=== PATIENT | female | born 1940 | race Caucasian/White ===

== ENCOUNTER → 2017-02-25 | Outpatient (CLI) | payer OTHER | END | disposition home or self-care (01) | LOC: C.CPL 15:05 | PROVIDERS: ATTEND Orthopaedic Surgery | DX: S83.242A Other tear of medial meniscus, current injury, left knee, initial encounter (principal); X58.XXXA Exposure to other specified factors, initial encounter; I25.2 Old myocardial infarction; R94.31 Abnormal electrocardiogram [ECG] [EKG] ==

== ENCOUNTER 2022-04-13 16:21 | Inpatient (IN) ==
[2022-04-13 17:06] LABS: Basophils # (auto) 0.06 K/uL (0-0.2); Basophils % (auto) 0.7 %; Eosinophils # (auto) 0.59 K/uL (0-0.50); Eosinophils % (auto) 6.4 %; Hematocrit (blood only) 36.4 % (34.1-44.9); Hemoglobin 12.1 g/dl (12.0-16.0); Immature Granulocytes # (auto) 0.05 K/uL (0.00-0.02); Immature Granulocytes % (auto) 0.5 %; Lymphocytes # (auto) 1.56 K/uL (1.2-3.4); Lymphocytes % (auto) 16.9 %; Mean Corpuscular Hemoglobin 31.9 pg (25.0-34.0); Mean Corpuscular Hgb Conc 33.2 g/dL (32.0-36.0); Mean Platelet Volume 8.9 fL (9.4-12.3); Monocytes # (auto) 0.66 K/uL (0.24-0.82); Monocytes % (auto) 7.2 %; Neutrophils # (auto) 6.31 K/uL (1.4-6.5); Neutrophils % (auto) 68.3 %; Platelet Count 353 K/uL (130-400); RDW Coefficient of Variation 12.4 % (11.5-14.5); RDW Standard Deviation 43.1 fL (36.4-46.3); Red Blood Count 3.79 M/uL (3.93-5.22); White Blood Count 9.23 K/ul (4.8-10.8)
[2022-04-13 17:20] LABS: Partial Thromboplastin Time 27.5 Seconds (21.0-31.0)
[2022-04-13 17:33] LABS: Alanine Aminotransferase 9 U/L (7-52); Albumin Globulin Ratio 0.7 (0.9-2); Albumin Level 3.7 gm/dl (3.4-5.0); Alkaline Phosphatase 82 U/L (34-104); Anion Gap 5 (3-11); Aspartate Aminotransferase 17 U/L (13-39); BUN Creatinine Ratio 52.6 (10-20); Bilirubin,Total 0.3 mg/dl (0.2-1.0); Blood Urea Nitrogen 30 mg/dl (6-23); Calcium 9.6 mg/dl (8.5-10.1); Carbon Dioxide 32 mmol/L (21-32); Chloride 95 mmol/L (98-107); Est GFR (African American) 100.8 ml/min; Est GFR (Non-African American) 86.9 ml/min; Glucose 138 mg/dl (70-99(Fasting)); Magnesium 2.1 mg/dl (1.7-2.4); Potassium 4.3 mmol/L (3.5-5.1); Sodium 132 mmol/L (136-145); Total Protein 8.7 gm/dl (6.0-8.3)
--- NOTE | 2022-04-13 19:21 | XRay Report ---
XR chest 1V portable CLINICAL HISTORY: Shortness of breath. COMPARISON STUDY: No previous studies for comparison. FINDINGS: Incidental note is made of a peripherally calcified 2.9 cm focus within the left upper quad rant. This may be within the spleen. Patient is rotated. There is no pneumothorax or pleural effusion . Cardiac size is normal. Asymmetric right hilar prominence is likely technical. A 2.3 cm right supra hilar density may also be artifactual related to the right first costosternal junction. There are julio pected patchy opacities, greater within the right lung. IMPRESSION: 1. Interstitial thickening with possible patchy bilateral airspace opacities, greater within the righ t lung. The findings may reflect pneumonia or less likely pulmonary edema. Radiographic follow-up is recommended. 2. 2.3 cm right suprahilar density. This may be artifactual however should be assessed on follow-up r adiograph to exclude a pulmonary nodule. ACT 112: Negative or not required by law. Electronically signed by: Delgado Alvarado M.D. 04/13/2022 7:19 PM
[2022-04-13 19:31] LABS: Influenza A virus by PCR Negative (Neg); Influenza B virus by PCR Negative (Neg); RSV by PCR Negative (Neg); SARS CoV2 RNA(COVID-19) Ceph NEGATIVE (Negative)
[2022-04-13] MEDS ORDERED: OPTIRAY 320 500ml IV ONE (22:40)
--- NOTE | 2022-04-13 22:57 | Emergency Department Note ---
Impression & Plan Respiratory failure, ILD (interstitial lung disease), Breathlessness ED Provider Note Provider: Lenny Shah MD DATE OF SERVICE: 04/13/2022 CHIEF COMPLAINT: Referred by , Shortness of breath HISTORY OF PRESENT ILLNESS: Patient is a 81-year-old female extensive past medical history including restrictive lung disease due to interstitial lung disease, chronic bronchiectasis, chronic respiratory failure on 2 L of oxygen, heart failure, type 1 diabetes and distant history of PE not currently on anticoagulation presenting here today referred from the pulmonary office. Has had several hospitalizations in the [facility] over the past year for breathing issues and has been on steroids and admitted with pneumonia. Has had elevated CO2 issues according to daughter who is present and provides additional history. Patient evidently over the past month has had worsening of her breathing. She is also had some nausea and a wet cough. Denies bloody cough. Seen in the pulmonary office and referred here today for further evaluation. PAST MEDICAL HISTORY: As noted above MEDICATIONS: Reviewed home medications SOCIAL HISTORY: Lives at home with , does not smoke, history of secondhand smoke exposure PHYSICAL EXAM: GENERAL: alert and oriented in no acute distress in wheelchair on nasal cannula oxygen Head: normocephalic and atraumatic EYES: No injection, discharge or icterus. NECK: Trachea midline. Supple. ENT: Mucous membranes pink and moist. LUNGS: Airway patent. No retractions. Breath sounds with some faint diffuse crackles HEART: Regular rate and rhythm. No chest wall tenderness ABDOMEN: Soft and non-tender, without guarding or rebound. SKIN: Acyanotic, warm, dry, without rashes EXTREMITIES: Without swelling, tenderness or deformity NEUROLOGICAL: No focal deficits. No aphasia. No facial droop or slurred speech. Ambulatory. EK bpm normal sinus rhythm. No PVC or PAC. No acute ST segment elevation with a QTC of 436 and a left axis. CONTINUOUS CARDIAC MONITORING: was ordered and showed a heart rate of 90s-100s bpm in normal sinus rhythm to sinus tachycardia Patient's laboratory studies and imaging reviewed. Differential includes Reactive airway disease, pneumonia, pneumothorax, COPD, CHF, infections, cardiac ischemia, pulmonary embolism, musculoskeletal, gastrointestinal, as well as other pathologies. IMPRESSION/MEDICAL DECISION MAKING: Patient with some worsening breathing over the past month or so. Referred from pulmonary office today. Increasing oxygen from 2 L up to 4. She has been more short of breath particularly ambulation. Bit of a cough. Significant pulmonary history and multiple hospitalizations before and [facility] outpatient records reviewed. Chest x-ray questions right hilar density as well as interstitial thickening and patchy bilateral airspace opacities possibly representing pneumonia. Does not appear fluid overloaded without swelling in the legs. Given history of VTE P CT PE was completed to exclude PE. No significant leukocytosis and no anemia today. Mild hyponatremia 132 but no severe hypokalemia or significant renal dysfunction. No troponin elevation and I doubt a cardiac etiology to her symptoms at this point. Negative COVID flu and RSV which is reassuring. CT scan report as below reviewed again to exclude PE and evaluate further for pneumonia process. Did order VBG although she does not appear acutely confused at this point. Patient to the bathroom on [address] ill gets winded even transferring to the toilet. CT scan as below questions a pneumonitis. Will cover with ceftriaxone at this point however given her chronic disease history as well as give a dose of steroids. Discussed with further care here at the hospital. Hospitalist contacted. Family updated at bedside. VBG without acidosis and a CO2 of 59. DIAGNOSIS: Acute on chronic respiratory failure, shortness of breath, interstitial lung disease DISPOSITION: Hospitalist will evaluate Patient was agreeable with this plan. Preliminary Findings Only See Final Report For Complete Findings CTA CHEST: Negative for DVT Extensive groundglass infiltrates may reflect microatelectasis versus nonspecific pneumonitis. Atypical pneumonia/viral pneumonia not excluded in the correct clinical setting Radiologist: Raheel Miller MD Study ready at 22:52 and initial results transmitted at 22:57 Past Med/Surg History Social History Smoking Status: Never smoker Preferred Language: Amharic Feels Safe at Home: Yes Allergies Allergies Allergy/AdvReac Type Severity Reaction Status Date / Time No Known Allergies Allergy Unverified 04/14/22 00:11 Results & Data (ED) Vital Signs Vital Signs - 24 hr 04/13/22 16:24 04/13/22 16:24 04/13/22 16:24 Temperature 36.3 C L Temperature Source Temporal Artery Scan Pulse Rate 98 H Pulse Rate [Apical] Respiratory Rate 20 Respiratory Effort / Characteristics Non-Labored Spontaneous Non-Labored Spontaneous Respiratory Depth Normal Respiratory Pattern Regular Blood Pressure 133/74 Blood Pressure [Right Arm] Blood Pressure Mean 93 Blood Pressure Mean [Right Arm] Blood Pressure Position Sitting Blood Pressure Position [Right Arm] Pulse Oximetry 87 L 87 L Oxygen Delivery Method Nasal Cannula Nasal Cannula Oxygen Flow Rate 3 3 Sepsis Recent Fever Within 48 Hours No Sepsis New/Unexplained Change in Mental Status N/A Sepsis Action Taken by Nursing No Action Required 04/13/22 16:34 04/13/22 16:55 04/13/22 16:55 Temperature Temperature Source Pulse Rate Pulse Rate [Apical] Respiratory Rate Respiratory Effort / Characteristics Respiratory Depth Respiratory Pattern Blood Pressure Blood Pressure [Right Arm] Blood Pressure Mean Blood Pressure Mean [Right Arm] Blood Pressure Position Blood Pressure Position [Right Arm] Pulse Oximetry 91 97 97 Oxygen Delivery Method Nasal Cannula Nasal Cannula Oxygen Flow Rate 4 4 Sepsis Recent Fever Within 48 Hours Sepsis New/Unexplained Change in Mental Status Sepsis Action Taken by Nursing 04/13/22 23:35 Temperature Temperature Source Pulse Rate Pulse Rate [Apical] 90 Respiratory Rate 18 Respiratory Effort / Characteristics Non-Labored Spontaneous Respiratory Depth Normal Respiratory Pattern Blood Pressure Blood Pressure [Right Arm] 178/83 H Blood Pressure Mean Blood Pressure Mean [Right Arm] 114 Blood Pressure Position Blood Pressure Position [Right Arm] Sitting Pulse Oximetry 94 Oxygen Delivery Method Nasal Cannula Oxygen Flow Rate 4 Sepsis Recent Fever Within 48 Hours Sepsis New/Unexplained Change in Mental Status Sepsis Action Taken by Nursing Laboratory Data 04/13/22 16:57 04/13/22 16:57 Lab Results 04/13/22 04/13/22 04/13/22 Range/Units 16:57 16:57 16:57 WBC 9.23 (4.8-10.8) K/ul RBC 3.79 L (3.93-5.22) M/uL Hgb 12.1 (12.0-16.0) g/dl Hct 36.4 (34.1-44.9) % MCV 96.0 (80.0-100.0) fL MCH 31.9 (25.0-34.0) pg MCHC 33.2 (32.0-36.0) g/dL RDW Std Deviation 43.1 (36.4-46.3) fL RDW Coeff of Kylee 12.4 (11.5-14.5) % Plt Count 353 (130-400) K/uL MPV 8.9 L (9.4-12.3) fL Immature Gran % (Auto) 0.5 % Neut % (Auto) 68.3 % Lymph % (Auto) 16.9 % Page % (Auto) 7.2 % Eos % (Auto) 6.4 % Baso % (Auto) 0.7 % Neut # (Auto) 6.31 (1.4-6.5) K/uL Lymph # (Auto) 1.56 (1.2-3.4) K/uL Page # (Auto) 0.66 (0.24-0.82) K/uL Eos # (Auto) 0.59 H (0-0.50) K/uL Baso # (Auto) 0.06 (0-0.2) K/uL Immature Gran # (Auto) 0.05 H (0.00-0.02) K/uL PT 11.0 (9.0-12.0) Seconds INR 1.0 (0.9-1.1) APTT 27.5 (21.0-31.0) Seconds PTT Ratio 1.0 VBG pH (7.36-7.41) VBG pCO2 (38-50) mmHg VBG pO2 mmHg VBG HCO3 mmol/L VBG O2 Saturation % VBG Base Excess mEq/L Sodium 132 L (136-145) mmol/L Potassium 4.3 (3.5-5.1) mmol/L Chloride 95 L (98-107) mmol/L Carbon Dioxide 32 (21-32) mmol/L Anion Gap 5 (3-11) BUN 30 H (6-23) mg/dl Creatinine 0.57 L (0.6-1.2) mg/dl Est Cr Clr Drug Dosing Not Reportable Est GFR ( Amer) 100.8 ml/min Est GFR (Non-Af Amer) 86.9 ml/min BUN/Creatinine Ratio 52.6 H (10-20) Glucose 138 H (70-99(Fasting)) mg/dl Calcium 9.6 (8.5-10.1) mg/dl Magnesium 2.1 (1.7-2.4) mg/dl Total Bilirubin 0.3 (0.2-1.0) mg/dl AST 17 (13-39) U/L ALT 9 (7-52) U/L Alkaline Phosphatase 82 (34-104) U/L Troponin I High Sens (0-14) pg/ml Total Protein 8.7 H (6.0-8.3) gm/dl Albumin 3.7 (3.4-5.0) gm/dl Globulin 5.0 H (2.5-4.0) gm/dl Albumin/Globulin Ratio 0.7 L (0.9-2) SARS-CoV-2 (PCR) (Negative) Influenza Type A (PCR) (Neg) Influenza Type B (PCR) (Neg) RSV (RT-PCR) (Neg) 04/13/22 04/13/22 04/13/22 Range/Units 16:57 18:27 23:29 WBC (4.8-10.8) K/ul RBC (3.93-5.22) M/uL Hgb (12.0-16.0) g/dl Hct (34.1-44.9) % MCV (80.0-100.0) fL MCH (25.0-34.0) pg MCHC (32.0-36.0) g/dL RDW Std Deviation (36.4-46.3) fL RDW Coeff of Kylee (11.5-14.5) % Plt Count (130-400) K/uL MPV (9.4-12.3) fL Immature Gran % (Auto) % Neut % (Auto) % Lymph % (Auto) % Page % (Auto) % Eos % (Auto) % Baso % (Auto) % Neut # (Auto) (1.4-6.5) K/uL Lymph # (Auto) (1.2-3.4) K/uL Page # (Auto) (0.24-0.82) K/uL Eos # (Auto) (0-0.50) K/uL Baso # (Auto) (0-0.2) K/uL Immature Gran # (Auto) (0.00-0.02) K/uL PT (9.0-12.0) Seconds INR (0.9-1.1) APTT (21.0-31.0) Seconds PTT Ratio VBG pH 7.38 (7.36-7.41) VBG pCO2 59 H (38-50) mmHg VBG pO2 26 mmHg VBG HCO3 35 mmol/L VBG O2 Saturation < 60.0 % VBG Base Excess 7.7 mEq/L Sodium (136-145) mmol/L Potassium (3.5-5.1) mmol/L Chloride (98-107) mmol/L Carbon Dioxide (21-32) mmol/L Anion Gap (3-11) BUN (6-23) mg/dl Creatinine (0.6-1.2) mg/dl Est Cr Clr Drug Dosing Est GFR ( Amer) ml/min Est GFR (Non-Af Amer) ml/min BUN/Creatinine Ratio (10-20) Glucose (70-99(Fasting)) mg/dl Calcium (8.5-10.1) mg/dl Magnesium (1.7-2.4) mg/dl Total Bilirubin (0.2-1.0) mg/dl AST (13-39) U/L ALT (7-52) U/L Alkaline Phosphatase (34-104) U/L Troponin I High Sens 4.9 (0-14) pg/ml Total Protein (6.0-8.3) gm/dl Albumin (3.4-5.0) gm/dl Globulin (2.5-4.0) gm/dl Albumin/Globulin Ratio (0.9-2) SARS-CoV-2 (PCR) NEGATIVE (Negative) Influenza Type A (PCR) Negative (Neg) Influenza Type B (PCR) Negative (Neg) RSV (RT-PCR) Negative (Neg) Administered Medications Discontinued Medications Ioversol (Optiray 320 500ml) 109 ml IV ONCE ONE Stop: 04/13/22 22:41 Last Admin: 04/13/22 22:41 Dose: 109 ml Documented By: [facility] Imaging Data Radiologist's Impression: Chest X-Ray 04/13/22 16:36 XR chest 1V portable CLINICAL HISTORY: Shortness of breath. COMPARISON STUDY: No previous studies for comparison. FINDINGS: Incidental note is made of a peripherally calcified 2.9 cm focus within the left upper quadrant. This may be within the spleen. Patient is rotated. There is no pneumothorax or pleural effusion. Cardiac size is normal. Asymmetric right hilar prominence is likely technical. A 2.3 cm right suprahilar density may also be artifactual related to the right first costosternal junction. There are suspected patchy opacities, greater within the right lung. IMPRESSION: 1. Interstitial thickening with possible patchy bilateral airspace opacities, greater within the right lung. The findings may reflect pneumonia or less likely pulmonary edema. Radiographic follow-up is recommended. 2. 2.3 cm right suprahilar density. This may be artifactual however should be assessed on follow-up radiograph to exclude a pulmonary nodule. ACT 112: Negative or not required by law. Electronically signed by: Delgado Alvarado M.D. 04/13/2022 7:19 PM Discharge Plan Visit Data Chief Complaint: Shortness of Breath/Dyspnea Stated Complaint: SOB, REF BY DOC ED Provider: Lenny Shah Discharge Problem: Respiratory failure, ILD (interstitial lung disease), Breathlessness Patient Disposition: Being Evaluated by Hospitalist Forms Stand Alone Forms: [facility] Referrals Referrals: Anders Cowan MD [Primary Care Provider] - : Respiratory failure Qualifiers: Chronicity: acute on chronic Respiratory failure complication: hypoxia Qualified Code(s): J96.21 - Acute and chronic respiratory failure with hypoxia
[2022-04-13] MEDS ORDERED: cefTRIAXone SODIUM 1,000 MG in DEXTROSE 5% AD-VAN 50 ML IV STA (23:20)
[2022-04-13 23:39] LABS: Base Excess VBG 7.7 mEq/L; HCO3 VBG 35 mmol/L; Oxygen Saturation VBG < 60.0 %; PCO2 VBG 59 mmHg (38-50); PO2 VBG 26 mmHg; pH VBG 7.38 (7.36-7.41)
[2022-04-14] MEDS ORDERED: ALBUTEROL HFA 8 GM INHALER INH PRN (00:13)
[2022-04-14] MEDS ORDERED: GLUCOSE 10 TAB/TUBE PO PRN (00:16)
[2022-04-14] MEDS ORDERED: GLUCOSE 40% GEL 15 GM TUBE PO PRN (00:16)
[2022-04-14] MEDS ORDERED: DEXTROSE 50% 50 ML SYRINGE IV PRN (00:16)
[2022-04-14] MEDS ORDERED: CARBOHYDRATES FOR HYPOGLYCEMIA PO PRN (00:16)
[2022-04-14] MEDS ORDERED: GLUCAGON FOR INJ 1 MG VIAL SQ PRN (00:16)
[2022-04-14] MEDS ORDERED: ACETAMINOPHEN 325 MG TAB PO PRN (00:18)
[2022-04-14] MEDS ORDERED: MAGNESIUM HYDROXIDE SUSP 30 ML UDC PO PRN (00:18)
[2022-04-14] MEDS ORDERED: ONDANSETRON INJ 2 MG/ML 2 ML VIAL IV PRN (00:18)
[2022-04-14] MEDS ORDERED: ALUMINUM/MAGNESIUM SUSP 30 ML UDC PO PRN (00:18)
[2022-04-14] MEDS ORDERED: POLYETHYLENE (MIRALAX) 17 GM PACK PO PRN (00:18)
[2022-04-14] MEDS ORDERED: LANTUS PER UNIT CHARGE SQ SCH ×2 (00:30→09:30)
[2022-04-14] MEDS: MONTELUKAST SODIUM 10 MG TABLET PO SCH ×2 (01:37→22:17)
[2022-04-14] MEDS: IPRATROPIUM BROMIDE NEB SOLN 0.02% 2.5 ML VIAL NEB SCH ×4 (01:37→17:33)
[2022-04-14 02:50] LABS: BUN Creatinine Ratio 49.1 (10-20); Creatinine Clr Calc Pharmacy 60.3 ml/min; Potassium 4.5 mmol/L (3.5-5.1)
--- NOTE | 2022-04-14 03:10 | History & Physical Report ---
Date of Service April 14, 2022 Assessment & Plan (1) ILD (interstitial lung disease): Plan Possible pneumonia Possible interstitial lung disease exacerbation Patient comes in with trouble breathing for 1 month, worsening since last 1 week Patient has a history of interstitial lung disease on 2 L oxygen at home, patient with increasing oxygen requirement and increasing shortness of breath with minimal exertion at home. Patient was evaluated by her call center specialist on the day of arrival and referred her to the hospital for admission/evaluation Admitting WBC WNL, CXR with patchy bilateral airspace opacities suggestive of pneumonia. Admitting CTA chest: Negative for PE. Extensive groundglass infiltrate, suggestive of nonspecific pneumonitis versus atypical pneumonia. Follow final imaging results. Patient is started on Rocephin in the ED, will continue same. Add doxycycline. Also will use Solu-Medrol for possible ILD exacerbation. Pulmonology consult in AM. Get BNP, if elevated ECHO/cardio consult. Failure to thrive Patient with low BMI, cachectic appearing, has poor appetite chronically which has further decreased in the last 2 to 3 weeks. Dietitian consult, liberalize diet. Other chronic medical conditions: As mentioned in HPI, resume home meds as able. SSI insulin for T1DM. Heparin subcu Full code PT/OT when able. Admission and Anticipated Discharge Date Admission Date: April 14, 2022 History of Present Illness Chief Complaint: trouble breathing Primary Care Provider: Anders Cowan MD 81-year-old lady with PMH of multifactorial shortness of breath, chronic bronchiectasis, restrictive lung disease due to both interstitial lung disease and extrathoracic weakness, moderate persistent asthma, chronic hypoxic respiratory failure on 2 L, chronic diastolic congestive failure, AP window adenopathy, chronic rhinitis and atrial fibrillation not on anticoagulation, T1DM, HLD, hypothyroidism, moderate persistent asthma, recurrent UTI presented to the ED 1/ with complaint of trouble breathing. Patient complains of difficulty breathing since last 1 month, worsening in the last 1 week. Patient feels short of breath with minimal exertion and is extremely tired and is requiring multiple naps a day, easily fatigable and is very weak and lethargic. Patient reports cough at baseline with clear scant mucus. Patient denies fever/sore throat/chest pain/palpitation/acute changes in her bladder habit. Patient also reports of having nausea since last 2 to 3 weeks and has decreased appetite but no vomiting. Patient reports her bowels are moving normal. 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 Medications were reviewed with the patient and her family at bedside. Plan of care discussed with him. Allergies Allergy/AdvReac Type Severity Reaction Status Date / Time Sulfa (Sulfonamide Allergy Rash Verified 04/14/22 01:29 Antibiotics) ciprofloxacin [From Cipro] AdvReac TENDEN Verified 04/14/22 01:29 TEARS levofloxacin [From Levaquin] AdvReac TENDEN Verified 04/14/22 01:29 TEARS BAND-AID Allergy Rash Uncoded 04/14/22 01:29 Home Medications Medication Instructions Recorded Confirmed Type Dm Tussin 2 tbsp PO HS 04/14/22 04/14/22 History Iodine External Tincture 1 applic topical HS PRN .SWISH/SPIT 04/14/22 04/14/22 History albuterol sulfate 90 mcg/actuation 2 puff inhalation Q4 PRN Shortness 04/14/22 04/14/22 History aerosol inhaler Of Breath Or Wheezing aspirin-sod bicarb-citric acid 325 1 tab PO DAILY PRN RHINITIS 04/14/22 04/14/22 History mg-1,916 mg-1,000 mg efferves tab (Jen-Idanha Original) bacillus coagulans-inulin 1 1 cap PO DAILY 04/14/22 04/14/22 History billion cell-250 mg capsule budesonide 160 mcg-glycopyr 9 2 inh inhalation BID 04/14/22 04/14/22 History mcg-formot 4.8 mcg/actuation HFA inhaler (Breztri Aerosphere) coQ10 (ubiquinol) 200 mg capsule 200 mg PO HS 04/14/22 04/14/22 History cyanocobalamin (vitamin B-12) 500 500 mcg PO DAILY 04/14/22 04/14/22 History mcg tablet (Vitamin B-12) docusate sodium 50 mg capsule 50 mg PO DAILY 04/14/22 04/14/22 History dong quai-soy germ 125 mg-7.5 mg 1 cap PO BID 04/14/22 04/14/22 History capsule famotidine 10 mg tablet 10 mg PO DAILY PRN Acid Reflux 04/14/22 04/14/22 History wwstleneuss-P-Otcfgnmcxczlhmvawk 1 tab PO BID 04/14/22 04/14/22 History 500 mg-200 mg tablet hydrocodone 5 mg-acetaminophen 325 0.5 - 1 tab PO QID PRN Pain 04/14/22 04/14/22 History mg tablet insulin aspart U-100 100 unit/mL 0 unit subcut ACHS PRN 10 ratio 04/14/22 04/14/22 History subcutaneous cartridge (Novolog with meals PenFill U-100 Insulin aspart) insulin degludec 100 unit/mL (3 20 unit subcut QAM 04/14/22 04/14/22 History mL) subcutaneous pen (Tresiba FlexTouch U-100 insulin) ipratropium bromide 0.02 % 2.5 ml continuous nebulization AMPM 04/14/22 04/14/22 History solution for inhalation lactobacillus combination no.4 3 0 mmu cells PO DAILY 04/14/22 04/14/22 History billion cell capsule (Probiotic) losartan 50 mg tablet 50 mg PO DAILY 04/14/22 04/14/22 History meclizine 25 mg tablet 25 mg PO DAILY PRN .. 04/14/22 04/14/22 History montelukast 10 mg tablet 10 mg PO HS 04/14/22 04/14/22 History hsy-ppa-vjxjpfav acid 1,000 1 ea PO HS 04/14/22 04/14/22 History mg-herbal 350 mg oral efferves powder pack (Airborne (ascorbic acid)) nystatin 100,000 unit/mL oral 1 ml buccal DAILY PRN SWISH & 04/14/22 04/14/22 History suspension SWALLOW polyethylene glycol 3350 17 gram 17 g PO DAILY CONS 04/14/22 04/14/22 History oral powder packet (Miralax) rosuvastatin 5 mg tablet 5 mg PO HS 04/14/22 04/14/22 History turmeric 400 mg capsule 400 mg PO BID 04/14/22 04/14/22 History vitamin K2 100 mcg capsule 100 mcg PO DAILY 04/14/22 04/14/22 History Past Med/Surg History Social History Smoking Status: Never smoker Preferred Language: Greenlandic Feels Safe at Home: Yes Review of Systems Review of Systems: Negative otherwise mentioned in HPI. Physical Exam Physical Exam: GENERAL: Alert and oriented x3. NAD, on 4L NC O2. Cachectic appearing. Chronically ill appearing. HEENT: No pallor, no icterus. Pupils equal, round and reactive to light. Oral mucosa moist. NECK: No JVD, no neck masses. HEART: S1 and S2 heard. Regular rate and rhythm. No murmur, no gallop. RESPIRATORY SYSTEM: Normal AP diameter. No accessory muscle use. No wheezing, fine crackles diffuse and bilateral. ABDOMEN: Soft, bowel sounds present, nontender, no distention. CENTRAL NERVOUS SYSTEM: No facial droop. Speech is clear. Obeys simple commands. Moves extremities. EXTREMITIES: No edema, no erythema seen. Results & Data Results & Data ([facility]) Vital Signs (Past 12 Hours) Vital Signs Temp Pulse Pulse Resp BP BP Pulse Ox 04/14/22 02:50 04/14/22 02:40 84 18 179/91 H 92 04/14/22 02:10 86 18 179/91 H 93 04/14/22 01:42 86 18 94 04/13/22 23:35 90 18 178/83 H 94 04/13/22 16:55 97 04/13/22 16:55 97 04/13/22 16:34 91 04/13/22 16:24 87 L 04/13/22 16:24 36.3 C L 98 H 20 133/74 87 L O2 Del Method O2 Flow Rate 04/14/22 02:50 Nasal Cannula 4 04/14/22 02:40 Nasal Cannula 4 04/14/22 02:10 Room Air 04/14/22 01:42 Nasal Cannula 4 04/13/22 23:35 Nasal Cannula 4 04/13/22 16:55 04/13/22 16:55 Nasal Cannula 4 04/13/22 16:34 Nasal Cannula 4 04/13/22 16:24 Nasal Cannula 3 04/13/22 16:24 Nasal Cannula 3 Code Status & VTE Plan VTE Prophylaxis Plan VTE Prophylaxis will be ordered: Yes
[2022-04-14] MEDS: DOXYCYCLINE HYCLATE 100 MG in DEXTROSE 5% 100 ML IV SCH ×2 (04:49→18:36)
--- NOTE | 2022-04-14 06:55 | CT Scan Report ---
CT angio chest PE protocol CT DOSE: 225.16 mGy.cm HISTORY: 81 years-old Female with PE, SOB, ?pna, hypoxia, lung disease. Acute shortness of breath w ith hypoxia TECHNIQUE: Multiple CTA images of the chest were obtained after the intravenous administration of ml Optiray. Coronal and sagittal MIPS were obtained from the axial data set and were submitted for revi ew. All measurements were obtained according to NASCET criteria. A dose lowering technique was utili zed adhering to the principles of ALARA. COMPARISON: Chest radiograph of same day. FINDINGS: CTA: The heart is normal in size. Moderate coronary artery calcifications. Atherosclerosis of the thoracic aorta without aneurysm or dissection. Unremarkable pulmonary artery. No pulmonary emboli identified. CT CHEST: No thyroid nodule. Prevascular lymph nodes measure up to 1.1 cm. Subcarinal and right hilar lymph nod es measure up to 9 mm. These are favored to be reactive. No pneumothorax or pleural effusion. Mild biapical pleural-parenchymal scarring. Patchy bilateral lisha undglass and consolidative opacities are noted along with areas of intralobular septal thickening. Ar eas of bronchiectasis and mild pulmonary cystic change noted within the upper lobes compatible with f ibrosis. Mosaic attenuation of the lungs. Scattered solid pulmonary nodules measure up to 7 mm the le ft lower lobe on image 220. Mild tracheobronchial secretions. Peripherally calcified 3.1 cm lesion of the superior pole left kidney. Mild distal esophageal wall th ickening with tiny hiatal hernia. No acute process of the imaged upper abdomen. Unremarkable soft tis sues. Degenerative changes of the shoulders and spine. Chronic compression fracture with kyphoplasty changes involving the T8 vertebral body. IMPRESSION: 1. No pulmonary emboli identified. 2. Chronic interstitial lung disease. 3. Air trapping with patchy multilobar distribution of bilateral groundglass and consolidative opacit ies suspicious for a superimposed infectious or inflammatory pneumonitis. 4. Numerous solid pulmonary nodules measure up to 7 mm. 5. Mild mediastinal lymphadenopathy, favored to be reactive. Please refer to below summary of Fleischner criteria recommendations for follow-up of incidental CT n odules (Woody Mcmahan, Guidelines for management of small pulmonary nodules detected on CT scans: A sta tement from the Fleischner Society, Radiology 237: [id number].) SOLID NODULES Multiple nodules size: 6-8 mm * Low risk patients: follow-up at 3-6 months, then consider further follow-up at 18-24 months * high risk patients: follow-up at 3-6 months, then at 18-24 months if no change Note: newly detected indeterminate nodule in persons 35 years of age or older. * Low risk patients: minimal or absent history of smoking and/or other known risk factors * high risk patients: history of smoking or of other known risk factors (e.g. first degree relative with lung cancer, or exposure to asbestos, radon, uranium) * if a nodule up to 8 mm is partly solid or is ground glass further follow-up is required after 24 m onths to exclude possible slow growing adenocarcinoma (MIGUEL A) ACT 112: Negative or not required by law. The above report was generated using voice recognition software. It may contain grammatical, syntax o r spelling errors. Electronically signed by: Solomon Lieberman M.D. 04/14/2022 6:52 AM
[2022-04-14] MEDS ORDERED: methylPREDNISolone 40 MG in SYRINGE 0 ML IV SCH (08:00)
[2022-04-14] MEDS: INSULIN ASPART PER UNIT SC SCH ×2 (08:00→14:29)
--- NOTE | 2022-04-14 08:46 | Pulmonary Consultation ---
Date of Consultation April 14, 2022 Assessment & Plan (1) ILD (interstitial lung disease): (2) Acute on chronic respiratory failure with hypoxemia: (3) Restrictive lung disease: (4) Pulmonary fibrosis: (5) Asthma: Plan CT chest 04/13/2022 personally reviewed: Bilateral apical pleural scarring, patchy groundglass opacities as well as mosaicism appreciated bilaterally. Hedge cam se appearance Traction bronchiectasis appreciated bilaterally in the upper lobes anteriorly Multiple pulmonary nodules bilaterally Minimal mediastinal lymphadenopathy --Acute on chronic hypoxic respiratory failure Multifactorial Patient does have underlying ILD could be exacerbation of that as well as asthma With steroids but tapered off to lower dose as soon as possible for COVID-19 PCR, influenza A/B, RSV all negative BNP 92 -- ILD with traction bronchiectasis and fibrosis Etiology is unclear Does have strong family history of rheumatoid arthritis Followed up with Dr. Delgadillo as an outpatient Patient does seem to respond to steroids as per the history. Given that she is 81 years old if she is able to get low-dose steroids to help her keep out of the hospital could be thought of is one of the option. 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 Will taper down to once a day as of tomorrow Continue with inhaled bronchodilators Okay to continue with antibiotics with atypical coverage for 5 days. Patient had CAT scan of the chest done in October of last year by Dr. Delgadillo and agrees with. Would recommend to see if he can get the images transferred into our system. Please note the above document was generated using voice recognition software. It may contain grammatical, syntax or spelling errors.Any formal questions or concerns about the content, text or information contained within the body of this dictation should be directly addressed to the provider for clarification. History of Present Illness Attending Physician: Shena Jung MD History of Present Illness 81-year-old female presented to the hospital with complaints of shortness of which has been going on since last couple of weeks progressively getting worse Past medical history: ILD diagnosed 2018 s/p virus pneumonia, restrictive lung disease, chronic bronchiectasis, chronic hypoxic respiratory failure on 2 L at home, chronic diastolic failure, A. fib not on anticoagulation, type I diabetic, dyslipidemia, hypothyroidism Pulmonary consulted for abnormal chest CT and hypoxia Patient has been diagnosed with ILD since 2018. She was on chronic prednisone for approximately 6 months at that time. In the last 4 years she has had multiple bouts of prednisone which were tapered off and days. Last taper was in November 2021. She never had bronchoscopy or biopsy of the lung done. Denies any personal history of any autoimmune disease like lupus, sarcoid, Sjogren's, rheumatoid arthritis. Denies any fever or chills Does complain of cough and brings up clear phlegm. Denies any hemoptysis No headache, no blurry vision No dysuria, diarrhea. There is strong family history of rheumatoid arthritis and sister. Social history: Lifetime non-smoker. Had birds at home, 3 parakeets for approximately 1-2 years when she was young. No birds or poultry nearby right now Patient did [place] farm [place]. Has been using inhalers at home on a regular basis. Allergies Allergy/AdvReac Type Severity Reaction Status Date / Time Sulfa (Sulfonamide Allergy Rash Verified 04/14/22 01:29 Antibiotics) ciprofloxacin [From Cipro] AdvReac TENDEN Verified 04/14/22 01:29 TEARS levofloxacin [From Levaquin] AdvReac TENDEN Verified 04/14/22 01:29 TEARS BAND-AID Allergy Rash Uncoded 04/14/22 01:29 Home Medications Medication Instructions Recorded Confirmed Type Dm Tussin 2 tbsp PO HS 04/14/22 04/14/22 History Iodine External Tincture 1 applic topical HS PRN .SWISH/SPIT 04/14/22 04/14/22 History albuterol sulfate 90 mcg/actuation 2 puff inhalation Q4 PRN Shortness 04/14/22 04/14/22 History aerosol inhaler Of Breath Or Wheezing aspirin-sod bicarb-citric acid 325 1 tab PO DAILY PRN RHINITIS 04/14/22 04/14/22 History mg-1,916 mg-1,000 mg efferves tab (Jen-Sydney Original) bacillus coagulans-inulin 1 1 cap PO DAILY 04/14/22 04/14/22 History billion cell-250 mg capsule budesonide 160 mcg-glycopyr 9 2 inh inhalation BID 04/14/22 04/14/22 History mcg-formot 4.8 mcg/actuation HFA inhaler (Breztri Aerosphere) coQ10 (ubiquinol) 200 mg capsule 200 mg PO HS 04/14/22 04/14/22 History cyanocobalamin (vitamin B-12) 500 500 mcg PO DAILY 04/14/22 04/14/22 History mcg tablet (Vitamin B-12) docusate sodium 50 mg capsule 50 mg PO DAILY 04/14/22 04/14/22 History dong quai-soy germ 125 mg-7.5 mg 1 cap PO BID 04/14/22 04/14/22 History capsule famotidine 10 mg tablet 10 mg PO DAILY PRN Acid Reflux 04/14/22 04/14/22 History sdfhwrtgxtp-D-Hedraatxcopgmwmxac 1 tab PO BID 04/14/22 04/14/22 History 500 mg-200 mg tablet hydrocodone 5 mg-acetaminophen 325 0.5 - 1 tab PO QID PRN Pain 04/14/22 04/14/22 History mg tablet insulin aspart U-100 100 unit/mL 0 unit subcut ACHS PRN 10 ratio 04/14/22 04/14/22 History subcutaneous cartridge (Novolog with meals PenFill U-100 Insulin aspart) insulin degludec 100 unit/mL (3 20 unit subcut QAM 04/14/22 04/14/22 History mL) subcutaneous pen (Tresiba FlexTouch U-100 insulin) ipratropium bromide 0.02 % 2.5 ml continuous nebulization AMPM 04/14/22 04/14/22 History solution for inhalation lactobacillus combination no.4 3 0 mmu cells PO DAILY 04/14/22 04/14/22 History billion cell capsule (Probiotic) losartan 50 mg tablet 50 mg PO DAILY 04/14/22 04/14/22 History meclizine 25 mg tablet 25 mg PO DAILY PRN .. 04/14/22 04/14/22 History montelukast 10 mg tablet 10 mg PO HS 04/14/22 04/14/22 History jqj-fuq-oaprcfyj acid 1,000 1 ea PO HS 04/14/22 04/14/22 History mg-herbal 350 mg oral efferves powder pack (Airborne (ascorbic acid)) nystatin 100,000 unit/mL oral 1 ml buccal DAILY PRN SWISH & 04/14/22 04/14/22 History suspension SWALLOW polyethylene glycol 3350 17 gram 17 g PO DAILY CONS 04/14/22 04/14/22 History oral powder packet (Miralax) rosuvastatin 5 mg tablet 5 mg PO HS 04/14/22 04/14/22 History turmeric 400 mg capsule 400 mg PO BID 04/14/22 04/14/22 History vitamin K2 100 mcg capsule 100 mcg PO DAILY 04/14/22 04/14/22 History Patient History Social History Smoking Status: Never smoker Hx Alcohol Use: No Hx Substance Use: No Preferred Language: Mauritanian Communication Ability: Effective Compensator Required: No Beliefs That Will Affect Care: None Current Living Situation: Spouse Feels Safe at Home: Yes Assistive Devices: Cane, Oxygen - Continuous and Walker Review of Systems Review of Systems: All systems reviewed & are unremarkable except as noted in HPI & below Physical Exam Physical Exam: Constitutional: No acute distress HEENT: EOMI, PERRLA Respiratory system: Decreased air entry bilaterally, no wheeze, no rhonchi, positive Velcro-like crackles appreciated bilaterally, especially anteriorly CVS: S1-S2 positive, no murmurs or gallops Abdomen: Soft, nontender, nondistended, positive bowel sounds x4 Extremities: +2 pulses bilaterally radialis/ dorsalis pedis, no cyanosis, no edema Neuro: Awake alert oriented x3 Psych: Normal mood and affect G/U: No Mccain Skin: no rashes, warm and dry Lymphatic: no cervical or axillary lymphadenopathy Results & Data Results & Data ([facility]) Vital Signs (Past 12 Hours) Vital Signs Pulse Resp BP Pulse Ox Pulse Ox O2 Del Method O2 Del Method 04/14/22 07:05 95 H 24 94 Nasal Cannula 04/14/22 06:17 90 18 95 Nasal Cannula 04/14/22 06:00 94 H 18 153/93 H 94 Nasal Cannula 04/14/22 04:07 91 H 20 168/84 H 92 Nasal Cannula 04/14/22 04:07 92 Nasal Cannula 04/14/22 04:07 92 Nasal Cannula 04/14/22 02:50 Nasal Cannula 04/14/22 02:40 84 18 179/91 H 92 Nasal Cannula 04/14/22 02:10 86 18 179/91 H 93 Room Air 04/14/22 01:42 86 18 94 Nasal Cannula 04/13/22 23:35 90 18 178/83 H 94 Nasal Cannula O2 Flow Rate O2 Flow Rate 04/14/22 07:05 4 04/14/22 06:17 4 04/14/22 06:00 4 04/14/22 04:07 4 04/14/22 04:07 4 04/14/22 04:07 4 04/14/22 02:50 4 04/14/22 02:40 4 04/14/22 02:10 04/14/22 01:42 4 04/13/22 23:35 4 Laboratory Results 04/13/22 16:57 04/14/22 02:14 PG Care Time/CCT Total # of Minutes Spent Total Time Spent with Patient: Total time spent is greater than 50% in coordination of care (as documented) at patient's floor/unit and/or counseling patient: Coding Level of Care Code 05287 INT INP/OBS CARE 3/75MIN Diagnoses ILD (interstitial lung disease) J84.9 Acute on chronic respiratory failure with hypoxemia J96.21 Restrictive lung disease J98.4 Pulmonary fibrosis J84.10 Asthma J45.909
[2022-04-14] MEDS ORDERED: HYDROCODONE/ACETAMOPHEN 5/325MG TAB PO PRN (09:02)
[2022-04-14] MEDS ORDERED: MECLIZINE HCL 25 MG TAB PO PRN (09:02)
[2022-04-14] MEDS ORDERED: [UNRECOGNIZED DRUG - OTHER] PO SCH (09:02)
[2022-04-14] MEDS ORDERED: NON-FORMULARY MEDICATION (Lactobacillus Combination No.4 [Probiotic] 3 billion cell Capsul PO SCH (09:02)
[2022-04-14] MEDS ORDERED: NON-FORMULARY MEDICATION (Vitamin K2 100 mcg Capsule) PO SCH (09:02)
[2022-04-14] MEDS ORDERED: FAMOTIDINE 10 MG TABLET PO PRN (09:02)
[2022-04-14] MEDS ORDERED: INSULIN ASPART PER UNIT SC ONE ×2 (09:30→14:30)
[2022-04-14] MEDS: HEPARIN SOD 5,000 UNIT/0.5 ML VIAL SQ SCH ×2 (10:15→22:19)
[2022-04-14] MEDS: DOCUSATE SODIUM 100 MG CAP PO SCH (10:15)
[2022-04-14] MEDS: FLUTICASONE/VILANTEROL 200/25MCG 14 PUFFS/INHALER INH SCH (10:16)
[2022-04-14] MEDS: ADVANCED PROBIOTIC 1250 MG CAPSULE PO SCH (10:33)
[2022-04-14] MEDS: CYANOCOBALAMIN (B-12) 500 MCG TABLET PO SCH (10:33)
[2022-04-14] MEDS: LOSARTAN POTASSIUM 50 MG TAB PO SCH (11:38)
[2022-04-14] MEDS ORDERED: PHARMACY GLYCEMIC MGMT CONSULT PRN (13:29)
[2022-04-14] MEDS ORDERED: LANTUS PER UNIT CHARGE SQ ONE (13:45)
[2022-04-14] MEDS ORDERED: INSULIN HUMAN REGULAR PER UNIT 5 UNITS in SYRINGE 4.95 ML IV ONE (14:00)
--- NOTE | 2022-04-14 14:49 | Electrocardiogram Report ---
Test Reason : Blood Pressure : / mmHG Vent. Rate : 097 BPM Atrial Rate : 097 BPM P-R Int : 154 ms QRS Dur : 084 ms QT Int : 344 ms P-R-T Axes : 068 -43 082 degrees QTc Int : 436 ms Poor data quality, interpretation may be adversely affected Normal sinus rhythm Possible Left atrial enlargement Left axis deviation Left ventricular hypertrophy Cannot rule out Septal infarct (cited on or before 25-FEB-2017) Abnormal ECG When compared with ECG of 25-FEB-2017 15:16, T wave inversion less evident in Lateral leads Confirmed by Santiago Leiva [id number]) on 04/14/2022 2:49:00 PM Referred By: Oleg Delgadillo Confirmed By:Santiago Leiva
--- NOTE | 2022-04-14 14:54 | Pharmacy Report ---
Pharmacy Glycemic Short Note 2 - Date of Service April 14, 2022 - Glycemic Short BSG Results (Last 24 hours): 04/13/22 04/14/22 04/14/22 16:57 01:36 02:14 Glucose 138 H 247 H POC Glucose 256 H 04/14/22 04/14/22 04/14/22 07:40 07:42 13:02 Glucose POC Glucose 315 H* 322 H* 397 H* OUTPATIENT ANTIDIABETIC REGIMEN: * Tresiba U100 20 units QAM, Novolog (CR 10) * Hemoglobin A1C pending ASSESSMENT: * Patient is an 81 year old female admitted for SOB with a history of T1DM. Pharmacy has been consulted for management of hyperglycemia. * Fasting blood glucose elevated, 12 units of basal given this AM, additional 8 units ordered, will reassess basal need in AM * Postprandial BSGs persistently elevated, 5 units of IV regular insulin given * Tightened Novolog parameters to home carb ratio of 10 and tightened correction factor * Will add overnight checks to better assess glycemic management PLAN FOR INPATIENT GLYCEMIC CONTROL: * Hold outpatient oral diabetes medications * Basal insulin * Lantus 12 units SQ this AM, additional 8 units given, will reassess basal needs in AM * Bolus insulin * NovoLog per scale ACHS or Q6hrs while NPO * Goal Range: Low 120 mg/dL - High 150 mg/dL * Correction Factor: 30 mg/dL/unit * Nutritional / Prandial insulin per carb ratio of 1 unit per 10 grams CHO consumed
[2022-04-14] MEDS ORDERED: INSULIN ASPART PER UNIT SC SCH ×2 (16:30→21:00)
--- NOTE | 2022-04-14 17:17 | Communication Note ---
Date of Service: April 14, 2022 Patient was admitted today by Dr Herman. Chart reviewed. Here for acute hypoxic respiratory failure-ILD exacerbation vs atypical pneumonia. Currently on solumedrol 40mg IV BID, ceftriaxone and doxycyline. Pulmonology consulted. Attempted to see patient but she was in rest room. Full note to follow tomorrow.
[2022-04-14] MEDS: cefTRIAXone SODIUM 1,000 MG in DEXTROSE 5% AD-VAN 50 ML IV SCH (17:28)
[2022-04-14] MEDS ORDERED: INSULIN REGULAR 250 UNITS in SODIUM CHLORIDE 0.9% 247.5 ML IV SCH (20:30)
[2022-04-14] MEDS ORDERED: INSULIN HUMAN REGULAR BOLUS IV ONE (20:30)
[2022-04-14] MEDS ORDERED: NON-FORMULARY MEDICATION (Coq10 (Ubiquinol) 200 mg Capsule) PO SCH (21:00)
[2022-04-14] MEDS: DEXTROMETHORPHAN POLYMR COMPLX 60 MG/10 ML UDP PO SCH (22:12)
[2022-04-14] MEDS: ROSUVASTATIN CALCIUM 5 MG TAB PO SCH (22:13)
[2022-04-14] MEDS: methylPREDNISolone 40 MG in SYRINGE 0 ML IV SCH (23:04)
[2022-04-15] MEDS ORDERED: INSULIN ASPART PER UNIT SC SCH
[2022-04-15] MEDS: IPRATROPIUM BROMIDE NEB SOLN 0.02% 2.5 ML VIAL NEB SCH ×3 (00:19→17:46)
[2022-04-15] MEDS: INSULIN ASPART PER UNIT SC SCH ×6 (02:12→21:32)
[2022-04-15] MEDS: DOXYCYCLINE HYCLATE 100 MG in DEXTROSE 5% 100 ML IV SCH ×2 (06:20→17:57)
[2022-04-15 07:42] LABS: Hematocrit (blood only) 34.6 % (34.1-44.9); Hemoglobin 11.8 g/dl (12.0-16.0); Mean Corpuscular Hgb Conc 34.1 g/dL (32.0-36.0); Mean Corpuscular Volume 93.8 fL (80.0-100.0); Mean Platelet Volume 9.6 fL (9.4-12.3); Platelet Count 343 K/uL (130-400); RDW Coefficient of Variation 12.2 % (11.5-14.5); RDW Standard Deviation 42.3 fL (36.4-46.3); Red Blood Count 3.69 M/uL (3.93-5.22); White Blood Count 5.74 K/ul (4.8-10.8)
[2022-04-15 08:14] LABS: BUN Creatinine Ratio 47.8 (10-20); Calcium 9.3 mg/dl (8.5-10.1); Creatinine Clr Calc Pharmacy 49.5 ml/min; Est GFR (African American) 95.5 ml/min; Est GFR (Non-African American) 82.4 ml/min; Magnesium 1.9 mg/dl (1.7-2.4); Phosphorus 4.3 mg/dl (2.5-4.9); Potassium 4.9 mmol/L (3.5-5.1)
[2022-04-15] MEDS: ADVANCED PROBIOTIC 1250 MG CAPSULE PO SCH (08:58)
[2022-04-15] MEDS: CYANOCOBALAMIN (B-12) 500 MCG TABLET PO SCH (08:58)
[2022-04-15] MEDS: LOSARTAN POTASSIUM 50 MG TAB PO SCH (08:58)
[2022-04-15] MEDS: DOCUSATE SODIUM 100 MG CAP PO SCH (08:59)
[2022-04-15] MEDS: FLUTICASONE/VILANTEROL 200/25MCG 14 PUFFS/INHALER INH SCH (08:59)
[2022-04-15] MEDS: HEPARIN SOD 5,000 UNIT/0.5 ML VIAL SQ SCH ×2 (08:59→20:36)
[2022-04-15] MEDS ORDERED: INSULIN HUMAN REGULAR PER UNIT 5 UNITS in SYRINGE 4.95 ML IV ONE (09:30)
[2022-04-15] MEDS: methylPREDNISolone 40 MG in SYRINGE 0 ML IV SCH (10:14)
[2022-04-15 10:21] LABS: Estimated Average Glucose 163 mg/dl; Hemoglobin A1C 7.3 % (4.5-5.6)
[2022-04-15] MEDS: LANTUS PER UNIT CHARGE SQ SCH (10:32)
--- NOTE | 2022-04-15 14:11 | Pharmacy Report ---
Pharmacy Glycemic Short Note 2 - Date of Service April 15, 2022 - Glycemic Short BSG Results (Last 24 hours): 04/14/22 04/14/22 04/14/22 15:18 18:49 19:29 Glucose POC Glucose 347 H* 363 H* 449 H* 04/14/22 04/14/22 04/15/22 21:26 22:50 00:42 Glucose POC Glucose 437 H* 268 H 152 H 04/15/22 04/15/22 04/15/22 02:05 04:01 07:12 Glucose 356 H* POC Glucose 157 H 176 H 04/15/22 04/15/22 08:56 13:02 Glucose POC Glucose 407 H* 289 H OUTPATIENT ANTIDIABETIC REGIMEN: * Tresiba U100 20 units QAM, Novolog (CR 10) * Hemoglobin A1C 7.3% (04/15/21) ASSESSMENT: 04/15: * Patient with persistently elevated BSGs last evening, was temporarily started on insulin drip, BSGs downtrended and insulin drip was discontinued * Fasting BSG 407 this AM, 20 units of Lantus given along with 5 units of IV regular insulin and Novolog with tightened parameters as outlined below * Stressors of methylprednisolone 40mg IV Q12H and antibiotics (doxycycline and ceftriaxone) continue * Will add a Lantus scale tonight, patient's basal needs unclear * Will continue overnight checks for better glycemic management 04/14: * Patient is an 81 year old female admitted for SOB with a history of T1DM. Pharmacy has been consulted for management of hyperglycemia. * Fasting blood glucose elevated, 12 units of basal given this AM, additional 8 units ordered, will reassess basal need in AM * Prandial BSGs persistently elevated, 5 units of IV regular insulin given * Tightened Novolog parameters to home carb ratio of 10 and tightened correction factor * Will add overnight checks to better assess glycemic management PLAN FOR INPATIENT GLYCEMIC CONTROL: * Hold outpatient oral diabetes medications * Basal insulin * Lantus 20 units SQ QAM, Lantus 0-10 units HS x1 * Bolus insulin * NovoLog per scale ACHS or Q6hrs while NPO * Goal Range: Low 120 mg/dL - High 150 mg/dL * Correction Factor: 25 mg/dL/unit * Nutritional / Prandial insulin per carb ratio of 1 unit per 8 grams CHO consumed
--- NOTE | 2022-04-15 14:22 | Pulmonology Progress Note ---
Date of Service April 15, 2022 Assessment & Plan (1) ILD (interstitial lung disease): (2) Acute on chronic respiratory failure with hypoxemia: (3) Restrictive lung disease: (4) Pulmonary fibrosis: (5) Asthma: Plan CT chest 04/13/2022 personally reviewed: Bilateral apical pleural scarring, patchy groundglass opacities as well as mosaicism appreciated bilaterally. Hedge cheese appearance Traction bronchiectasis appreciated bilaterally in the upper lobes anteriorly Multiple pulmonary nodules bilaterally Minimal mediastinal lymphadenopathy I personally looked at the age CT which was done October 2021 and did not find any significant difference on the latest CAT scan which was done today. --Acute on chronic hypoxic respiratory failure Multifactorial Patient does have underlying ILD could be exacerbation of that as well as asthma With steroids but tapered off to lower dose as soon as possible for COVID-19 PCR, influenza A/B, RSV all negative BNP 92 -- ILD with traction bronchiectasis and fibrosis Etiology is unclear Does have strong family history of rheumatoid arthritis Followed up with Dr. Delgadillo as an outpatient Patient does seem to respond to steroids as per the history. Given that she is 81 years old if she is able to get low-dose steroids to help her keep out of the hospital could be thought of is one of the option. 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 Continue with inhaled bronchodilators Continue with antibiotics for total of 5 days Patient's as well as daughter at bedside. All question inquiries of the patient as well as patient's family were answered in depth Case was also discussed with Dr. Jung Please note the above document was generated using voice recognition software. It may contain grammatical, syntax or spelling errors.Any formal questions or concerns about the content, text or information contained within the body of this dictation should be directly addressed to the provider for clarification. Admission and Anticipated Discharge Date Admission Date: April 14, 2022 Subjective Patient seen and examined at bedside. No acute distress, no adverse events over night. Patient was saturating 97% on 2 L nasal cannula at rest. She says she is feeling much better compared to before Has been using incentive spirometry as well as flutter valve. Denies any chest pain, no headache, no nausea, no vomiting. No blurry vision. Review of Systems Review of Systems: All systems reviewed & are unremarkable except as noted in Subjective Physical Exam Physical Exam: Constitutional: No acute distress HEENT: EOMI, PERRLA Respiratory system: Decreased air entry bilaterally, no wheeze, no rhonchi, positive Velcro-like crackles appreciated bilaterally, especially anteriorly CVS: S1-S2 positive, no murmurs or gallops Abdomen: Soft, nontender, nondistended, positive bowel sounds x4 Extremities: +2 pulses bilaterally radialis/ dorsalis pedis, no cyanosis, no edema Neuro: Awake alert oriented x3 Psych: Normal mood and affect G/U: No Mccain Skin: no rashes, warm and dry Lymphatic: no cervical or axillary lymphadenopathy Results & Data Results & Data ([facility]) Vital Signs (Past 12 Hours) Vital Signs Pulse Pulse Resp BP BP Pulse Ox Pulse Ox 04/15/22 10:00 103 H 04/15/22 09:00 92 H 22 93 04/15/22 08:00 92 H 23 94 04/15/22 07:00 89 20 96 04/15/22 06:00 88 25 H 93 04/15/22 06:00 164/84 H 04/15/22 05:00 86 26 H 92 04/15/22 04:00 89 24 94 04/15/22 03:00 90 24 94 04/15/22 07:21 04/15/22 07:07 92 H 18 97 04/15/22 04:00 94 H 18 153/85 H 94 04/15/22 04:00 95 O2 Del Method O2 Del Method O2 Flow Rate 04/15/22 10:00 Nasal Cannula 2 04/15/22 09:00 Nasal Cannula 2 04/15/22 08:00 Nasal Cannula 2 04/15/22 07:00 Nasal Cannula 2 04/15/22 06:00 Nasal Cannula 2 04/15/22 06:00 04/15/22 05:00 Nasal Cannula 2 04/15/22 04:00 Nasal Cannula 2 04/15/22 03:00 04/15/22 07:21 Nasal Cannula 2 04/15/22 07:07 Nasal Cannula 3 04/15/22 04:00 Nasal Cannula 04/15/22 04:00 Nasal Cannula Laboratory Results 04/15/22 07:12 04/15/22 07:12 PG Care Time/CCT Total # of Minutes Spent Total Time Spent with Patient: Total time spent is greater than 50% in coordination of care (as documented) at patient's floor/unit and/or counseling patient: Coding Level of Care Code 00198 SUB INP/OBS CARE 3/50MIN Diagnoses ILD (interstitial lung disease) J84.9 Acute on chronic respiratory failure with hypoxemia J96.21 Restrictive lung disease J98.4 Pulmonary fibrosis J84.10 Asthma J45.909
--- NOTE | 2022-04-15 16:35 | Hospitalist Progress Note ---
Date of Service April 15, 2022 Assessment & Plan (1) Acute on chronic respiratory failure with hypoxemia: (2) ILD (interstitial lung disease): Plan Acute on chronic hypoxic respiratory failure -Baseline on 2L NC, yesterday up to 3L NC now back to 2L -CXR found to have bilateral opacities (R>L) currently on ceftriaxone and doxycyline. Also on solumedrol 40mg IV BID for possible ILD exacerbation -Appreciate Pulmonology input Moderate Malnutrition -Appreciate RD input, encourage oral intake, Boost supplement Type 1 DM with steroid induced Hyperglycemia currently -Diabetes management per pharmacy DVT ppx SQ heparin Disposition -Patient is from home, lives with spouse Admission and Anticipated Discharge Date Admission Date: April 14, 2022 Subjective Breathing feels slightly improved Persistently elevated glucose. Back to baseline 2 L NC Physical Exam Physical Exam: thin, elderly, frail, no acute distress Respiratory: Breathing comfortably, no wheezing/rhonchi/rales Cardiovascular: Regular rate and rhythm, no murmurs/rubs/gallops Gastrointestinal (Abdomen): Soft, non tender Musculoskeletal: No edema Neurologic: Awake, alert, spontaneously moving extremities Results & Data Results & Data ([facility]) Vital Signs (Past 12 Hours) Vital Signs Pulse Pulse Resp BP Pulse Ox O2 Del Method O2 Flow Rate 04/15/22 16:00 89 16 94 04/15/22 15:39 102 H 36 H 138/68 04/15/22 14:00 101 H 23 93 04/15/22 14:00 175/116 H 04/15/22 13:01 238/127 H 04/15/22 13:01 98 H 20 04/15/22 13:00 91 H 22 04/15/22 12:00 98 H 18 94 04/15/22 11:00 103 H 26 H 04/15/22 10:00 103 H Nasal Cannula 2 04/15/22 09:00 92 H 22 93 Nasal Cannula 2 04/15/22 08:00 92 H 23 94 Nasal Cannula 2 04/15/22 07:00 89 20 96 Nasal Cannula 2 04/15/22 06:00 88 25 H 93 Nasal Cannula 2 04/15/22 06:00 164/84 H 04/15/22 05:00 86 26 H 92 Nasal Cannula 2 04/15/22 07:21 Nasal Cannula 2 04/15/22 07:07 92 H 18 97 Nasal Cannula 3
[2022-04-15] MEDS: cefTRIAXone SODIUM 1,000 MG in DEXTROSE 5% AD-VAN 50 ML IV SCH (17:04)
[2022-04-15] MEDS: ROSUVASTATIN CALCIUM 5 MG TAB PO SCH (20:31)
[2022-04-15] MEDS: MONTELUKAST SODIUM 10 MG TABLET PO SCH (20:32)
[2022-04-15] MEDS: DEXTROMETHORPHAN POLYMR COMPLX 60 MG/10 ML UDP PO SCH (20:33)
[2022-04-15] MEDS ORDERED: LANTUS PER UNIT CHARGE SQ ONE (21:00)
[2022-04-16] MEDS: INSULIN ASPART PER UNIT SC SCH ×4 (00:05→12:20)
[2022-04-16] MEDS: IPRATROPIUM BROMIDE NEB SOLN 0.02% 2.5 ML VIAL NEB SCH (05:07)
[2022-04-16] MEDS: DOXYCYCLINE HYCLATE 100 MG in DEXTROSE 5% 100 ML IV SCH (05:41)
[2022-04-16] MEDS ORDERED: LEVOTHYROXINE SODIUM 125 MCG TABLET PO SCH (06:30)
[2022-04-16 07:07] LABS: Basophils # (auto) 0.04 K/uL (0-0.2); Basophils % (auto) 0.6 %; Eosinophils % (auto) 1.5 %; Hematocrit (blood only) 33.4 % (34.1-44.9); Hemoglobin 11.1 g/dl (12.0-16.0); Immature Granulocytes # (auto) 0.05 K/uL (0.00-0.02); Immature Granulocytes % (auto) 0.8 %; Lymphocytes # (auto) 1.94 K/uL (1.2-3.4); Lymphocytes % (auto) 29.1 %; Mean Corpuscular Hgb Conc 33.2 g/dL (32.0-36.0); Mean Corpuscular Volume 96.3 fL (80.0-100.0); Mean Platelet Volume 9.1 fL (9.4-12.3); Monocytes # (auto) 0.64 K/uL (0.24-0.82); Monocytes % (auto) 9.6 %; Neutrophils # (auto) 3.89 K/uL (1.4-6.5); Neutrophils % (auto) 58.4 %; Platelet Count 334 K/uL (130-400); RDW Coefficient of Variation 12.5 % (11.5-14.5); RDW Standard Deviation 44.1 fL (36.4-46.3); Red Blood Count 3.47 M/uL (3.93-5.22); White Blood Count 6.66 K/ul (4.8-10.8)
[2022-04-16 07:35] LABS: BUN Creatinine Ratio 52.5 (10-20); Calcium 8.9 mg/dl (8.5-10.1); Creatinine Clr Calc Pharmacy 59.1 ml/min; Est GFR (African American) 99.6 ml/min; Potassium 4.3 mmol/L (3.5-5.1)
--- NOTE | 2022-04-16 07:36 | Pulmonology Progress Note ---
Date of Service April 16, 2022 Assessment & Plan (1) ILD (interstitial lung disease): (2) Acute on chronic respiratory failure with hypoxemia: (3) Restrictive lung disease: (4) Pulmonary fibrosis: (5) Asthma: Plan CT chest 04/13/2022 personally reviewed: Bilateral apical pleural scarring, patchy groundglass opacities as well as mosaicism appreciated bilaterally. Hedge cheese appearance Traction bronchiectasis appreciated bilaterally in the upper lobes anteriorly Multiple pulmonary nodules bilaterally Minimal mediastinal lymphadenopathy I personally looked at the age CT which was done October 2021 and did not find any significant difference on the latest CAT scan which was done today. --Acute on chronic hypoxic respiratory failure Multifactorial Patient does have underlying ILD could be exacerbation of that as well as asthma With steroids but tapered off to lower dose as soon as possible for COVID-19 PCR, influenza A/B, RSV all negative BNP 92 -- ILD with traction bronchiectasis and fibrosis Etiology is unclear Does have strong family history of rheumatoid arthritis Followed up with Dr. Delgadillo as an outpatient Patient does seem to respond to steroids as per the history. Given that she is 81 years old if she is able to get low-dose steroids to help her keep out of the hospital could be thought of is one of the option. 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 Doxycycline would suffice Patient's son was at the bedside. All question queries were answered in depth. Recommend guaifenesin-DM along with flutter valve to be used on an as-needed basis even at home. Outpatient follow-up with pulmonary The recommendation from pulmonary perspective. We will sign off. Please call directly with any questions Case was also discussed with Dr. Jung Please note the above document was generated using voice recognition software. It may contain grammatical, syntax or spelling errors.Any formal questions or concerns about the content, text or information contained within the body of this dictation should be directly addressed to the provider for clarification. Admission and Anticipated Discharge Date Admission Date: April 14, 2022 Subjective Patient seen and examined at bedside. No acute distress, no adverse events overnight. Patient son was in the room. She was saturating 96% on 2 L. I went down to 1 L. Overall she is feeling better compared to before Coughing is improved. No hemoptysis No chest pain, no headache, no blurry vision. Fair appetite Review of Systems Review of Systems: All systems reviewed & are unremarkable except as noted in Subjective Physical Exam Physical Exam: Constitutional: No acute distress HEENT: EOMI, PERRLA Respiratory system: Decreased air entry bilaterally, no wheeze, no rhonchi, positive Velcro-like crackles appreciated bilaterally, especially anteriorly CVS: S1-S2 positive, no murmurs or gallops Abdomen: Soft, nontender, nondistended, positive bowel sounds x4 Extremities: +2 pulses bilaterally radialis/ dorsalis pedis, no cyanosis, no edema Neuro: Awake alert oriented x3 Psych: Normal mood and affect G/U: No Mccain Skin: no rashes, warm and dry Lymphatic: no cervical or axillary lymphadenopathy Results & Data Results & Data ([facility]) Vital Signs (Past 12 Hours) Vital Signs Temp Pulse Pulse Resp BP BP Pulse Ox 04/16/22 05:10 84 18 97 04/16/22 02:37 36.4 C L 84 18 139/76 97 04/16/22 00:09 04/15/22 22:47 36.6 C 91 H 18 158/73 H 98 04/15/22 22:00 91 H 25 H 96 04/15/22 22:00 155/87 H 04/15/22 21:00 97 H 25 H 97 04/15/22 21:00 140/92 04/15/22 20:00 102 H 31 H 04/15/22 20:00 148/80 H O2 Del Method O2 Flow Rate 04/16/22 05:10 Nasal Cannula 2 04/16/22 02:37 Nasal Cannula 04/16/22 00:09 Nasal Cannula 2 04/15/22 22:47 Nasal Cannula 2 04/15/22 22:00 Nasal Cannula 2 04/15/22 22:00 04/15/22 21:00 Nasal Cannula 2 04/15/22 21:00 04/15/22 20:00 04/15/22 20:00 Laboratory Results 04/16/22 06:42 01/06/23 06:42 PG Care Time/CCT Total # of Minutes Spent Total Time Spent with Patient: Total time spent is greater than 50% in coordination of care (as documented) at patient's floor/unit and/or counseling patient: Coding Level of Care Code 83114 SUB INP/OBS CARE 2/35MIN Diagnoses ILD (interstitial lung disease) J84.9 Acute on chronic respiratory failure with hypoxemia J96.21 Restrictive lung disease J98.4 Pulmonary fibrosis J84.10 Asthma J45.909
[2022-04-16] MEDS: LANTUS PER UNIT CHARGE SQ SCH (08:47)
[2022-04-16] MEDS: CYANOCOBALAMIN (B-12) 500 MCG TABLET PO SCH (08:48)
[2022-04-16] MEDS: HEPARIN SOD 5,000 UNIT/0.5 ML VIAL SQ SCH (08:48)
[2022-04-16] MEDS: ADVANCED PROBIOTIC 1250 MG CAPSULE PO SCH (08:48)
[2022-04-16] MEDS: DOCUSATE SODIUM 100 MG CAP PO SCH (08:48)
[2022-04-16] MEDS: LOSARTAN POTASSIUM 50 MG TAB PO SCH (08:48)
[2022-04-16] MEDS: FLUTICASONE/VILANTEROL 200/25MCG 14 PUFFS/INHALER INH SCH (08:49)
[2022-04-16] MEDS ORDERED: methylPREDNISolone 40 MG in SYRINGE 0 ML IV SCH (09:00)
--- NOTE | 2022-04-16 10:49 | Pharmacy Report ---
Pharmacy Glycemic Short Note 2 - Date of Service April 16, 2022 - Glycemic Short BSG Results (Last 24 hours): 04/15/22 04/15/22 04/15/22 13:02 17:51 19:01 Glucose POC Glucose 289 H 271 H 287 H 04/15/22 04/16/22 04/16/22 23:59 03:43 04:02 Glucose POC Glucose 141 H 60 L* 82 04/16/22 04/16/22 06:42 07:20 Glucose 128 H POC Glucose 131 H OUTPATIENT ANTIDIABETIC REGIMEN: * Tresiba U100 20 units QAM, Novolog (CR 10) * Hemoglobin A1C 7.3% (04/15/21) ASSESSMENT: 04/16: * Patient received 74 units of insulin yesterday of which 30 were basal * Solumedrol 40mg IV decreased from Q12H to QD, ceftriaxone and doxycycline continue * Fasting BSG of 131 this AM, continue with 20 units of Lantus QAM * Prandial BSGs still uncontrolled, but downtrending with the basal Lantus, continue to tighten Novolog parameters until goal is met 04/15: * Patient with persistently elevated BSGs last evening, was temporarily started on insulin drip, BSGs downtrended and insulin drip was discontinued * Fasting BSG 407 this AM, 20 units of Lantus given along with 5 units of IV regular insulin and Novolog with tightened parameters as outlined below * Stressors of methylprednisolone 40mg IV Q12H and antibiotics (doxycycline and ceftriaxone) continue * Will add a Lantus scale tonight, patient's basal needs unclear * Will continue overnight checks for better glycemic management 04/14: * Patient is an 81 year old female admitted for SOB with a history of T1DM. Pharmacy has been consulted for management of hyperglycemia. * Fasting blood glucose elevated, 12 units of basal given this AM, additional 8 units ordered, will reassess basal need in AM * Prandial BSGs persistently elevated, 5 units of IV regular insulin given * Tightened Novolog parameters to home carb ratio of 10 and tightened correction factor * Will add overnight checks to better assess glycemic management PLAN FOR INPATIENT GLYCEMIC CONTROL: * Hold outpatient oral diabetes medications * Basal insulin * Lantus 20 units SQ QAM * Bolus insulin * NovoLog per scale ACHS or Q6hrs while NPO * Goal Range: Low 120 mg/dL - High 150 mg/dL * Correction Factor: 21 mg/dL/unit * Nutritional / Prandial insulin per carb ratio of 1 unit per 6 grams CHO consumed
--- NOTE | 2022-04-16 12:51 | Discharge Summary ---
Date of Service April 16, 2022 Admission HPI Per Admitting Provider 81-year-old lady with PMH of multifactorial shortness of breath, chronic bronchiectasis, restrictive lung disease due to both interstitial lung disease and extrathoracic weakness, moderate persistent asthma, chronic hypoxic respiratory failure on 2 L, chronic diastolic congestive failure, AP window adenopathy, chronic rhinitis and atrial fibrillation not on anticoagulation, T1DM, HLD, hypothyroidism, moderate persistent asthma, recurrent UTI presented to the ED 1/ with complaint of trouble breathing. Patient complains of difficulty breathing since last 1 month, worsening in the last 1 week. Patient feels short of breath with minimal exertion and is extremely tired and is requiring multiple naps a day, easily fatigable and is very weak and lethargic. Patient reports cough at baseline with clear scant mucus. Patient denies fever/sore throat/chest pain/palpitation/acute changes in her bladder habit. Patient also reports of having nausea since last 2 to 3 weeks and has decreased appetite but no vomiting. Patient reports her bowels are moving normal. 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 Medications were reviewed with the patient and her family at bedside. Plan of care discussed with him. Principal Diagnosis Acute on chronic hypoxic respiratory failure ILD exacerbation versus atypical pneumonia Steroid induced hyperglycemia Discharge Exam Thin, frail, elderly Respiratory Breathing comfortably on NC, no wheezing/rhonchi/rales Cardiovascular Regular rate and rhythm, no murmurs/rubs/gallops Musculoskeletal No edema Discharge Data Allergies Allergy/AdvReac Type Severity Reaction Status Date / Time Sulfa (Sulfonamide Allergy Rash Verified 04/14/22 01:29 Antibiotics) ciprofloxacin [From Cipro] AdvReac TENDEN Verified 04/14/22 01:29 TEARS levofloxacin [From Levaquin] AdvReac TENDEN Verified 04/14/22 01:29 TEARS BAND-AID Allergy Rash Uncoded 04/14/22 01:29 Consultations 04/13/22 23:23 ED Decision to Admit Stat 04/14/22 00:17 Consult Pulmonology Routine Ordered Studies 04/13/22 21:42 CT angio chest PE protocol Urgent Hospital Course (1) Acute on chronic respiratory failure with hypoxemia: (2) ILD (interstitial lung disease): Plan Ms Vijaya Darden is [id number] female with PMH of chronic bronchiectasis, restrictive lung disease due to both interstitial lung disease and extrathoracic weakness, moderate persistent asthma, chronic hypoxic respiratory failure on 2 L, chronic diastolic congestive failure, and atrial fibrillation not on anticoagulation, T1DM, HLD, hypothyroidism, presented to the ED 1/ with complaint of increased shortness of breath. She was found to have acute on chronic hypoxic respiratory failure and required 3L NC while here and was weaned back down to 2L prior to discharge. She had a CXR and found to have bilateral opacities (R>L) and was placed on antibiotics and solumedrol. She was seen by Pulmonology while here and felt to have atypical pneumonia and/or ILD exacerbation. She was back to her baseline pulmonary status prior to discharge. She was discharged home on a prednisone taper and another day of doxycyline to finish 5 day course of antibiotics. While here, she was hyperglycemic while on steroids but this improved after her steroids were reduced Total Time Total Time Spent Total Time Spent (In Minutes): 40 Discharge Plan Discharge Items Patient Disposition: Home - Self-Care Reason For Visit: SOB, DYSPNEA ON EXERTION, WEAKNESS Discharge Diagnosis: Atypical Pneumonia versus ILD exacerbation Acute on chronic hypoxic respiratory failure Steroid induced hyperglycemia Condition on Discharge: Good Activity: Resume your previous activity Non-emergency contact: Primary Care Provider and Hip Hop Artist Follow-up/Referrals: Anders Cowan MD [Primary Care Provider] - Diet: Carb Count or DM1 Addtl Attending Provider Instructions: You will go home on a prednisone taper as follows: Prednisone 40mg daily for 3 days then 30 mg daily for 3 days then 20mg daily for 3 days then 10 mg daily for 3 days then 5mg daily for 3 days, then stop While you are on prednisone, you should be on protonix or pepcid to prevent stomach ulcer. You can continue your Tresiba 20 units daily but increase your premeal carb coverage while you are on prednisone Please follow up with Pulmonology within 2 weeks of discharge Pending Studies at Discharge: No Stand-Alone Forms: My [employer], Smoking Cessation Medications and DC Order Prescriptions: New prednisone 5 mg tablet 5 mg PO DIRECTED Qty: 63 0RF Rx Instructions: 40mg QD x 3 days then 30 mg QD x 3 days then 20 mg QD x 3 days then 10mg QD x 3 days then 5mg QD x 3 days doxycycline monohydrate 100 mg capsule 100 mg PO BID 1 Days Qty: 2 0RF Continued hydrocodone-acetaminophen 5-325 mg tablet 0.5 - 1 tab PO QID PRN (Reason: Pain) montelukast 10 mg Tablet 10 mg PO HS albuterol sulfate 90 mcg/actuation HFA aerosol inhaler 2 puff INHALATION Q4 PRN (Reason: Shortness Of Breath Or Wheezing) ipratropium bromide 0.02 % solution 2.5 ml continuous nebulization AMPM Rx Instructions: NEEDS PM DOSE rosuvastatin 5 mg tablet 5 mg PO HS Breztri Aerosphere 160-9-4.8 mcg/actuation HFA aerosol inhaler 2 inh INHALATION BID Rx Instructions: NEEDS PM DOSE losartan 50 mg tablet 50 mg PO DAILY nystatin 100,000 unit/mL Suspension 1 ml BUCCAL DAILY PRN (Reason: SWISH & SWALLOW) Rx Instructions: administer 1/2 of dose in each side of the mouth famotidine 10 mg Tablet 10 mg PO DAILY PRN (Reason: Acid Reflux) polyethylene glycol 3350 [Miralax] 17 gram Powder In Packet 17 g PO DAILY vandana quai-soy germ 125-7.5 mg Capsule 1 cap PO BID docusate sodium 50 mg Capsule 50 mg PO DAILY cyanocobalamin (vitamin B-12) [Vitamin B-12] 500 mcg Tablet 500 mcg PO DAILY Rx Instructions: WITH 400 MCG OF FOLIC ACID meclizine 25 mg Tablet 25 mg PO DAILY PRN (Reason: ..) insulin aspart U-100 [Novolog PenFill U-100 Insulin] 100 unit/mL cartridge 0 unit SUBCUT ACHS PRN (Reason: 10 ratio with meals) [id number]-F-Fbrakauugqzglnn 500-200 mg Tablet 1 tab PO BID [place] Original 325-1,916-1,000 mg Tablet, Effervescent 1 tab PO DAILY PRN (Reason: RHINITIS) coQ10 (ubiquinol) 200 mg Capsule 200 mg PO HS bacillus coagulans-inulin 1 billion-250 cell-mg Capsule 1 cap PO DAILY Probiotic 3 billion cell Capsule 0 mmu cells PO DAILY Rx Instructions: administer with a meal insulin degludec [Tresiba FlexTouch U-100] 100 unit/mL (3 mL) insulin pen 20 unit SUBCUT QAM turmeric 400 mg Capsule 400 mg PO BID Airborne (ascorbic acid) 1,000-350 mg Powder Effervescent In Packet 1 ea PO HS vitamin K2 100 mcg Capsule 100 mcg PO DAILY Rx Instructions: WITH D3 25 MCG & CALCIUM 32 MG Dm Tussin 2 tbsp PO HS Rx Instructions: TABLESPOON, NEEDS TONIGHT Iodine External Tincture 1 applic topical HS PRN (Reason: .SWISH/SPIT) Rx Instructions: APPLY TO AFFECTED AREA Discharge Orders: Discharge Order (Routine); Ordered 04/16/22 Ordered By: Shena White/Other Patient Handouts: Managing Type 1 Diabetes Admission Data Admit Date/Time: 04/14/22 04:00 Attending Provider: Shena Jung Admit Provider: Flora Foy Primary Care Provider: Anders Cowan Other Providers: Flora Foy ; David Fu ; Beau Cm ; Ronak Marin ; Trisha Shankar ; Gracie Villareal
[2022-04-16] MEDS ORDERED: LANTUS PER UNIT CHARGE SQ ONE (21:00)
[2022-04-22 12:16] LABS: Anti Cardiolipin Ab IgG <2.0 GPL-U/mL; Anti Cardiolipin Ab IgM <2.0 MPL-U/mL; Anti Nuclear Antibody Screen NEGATIVE (NEGATIVE); Anti-Centromere Ab <1.0 NEG AI (<1.0 NEG); Anti-SS-A <1.0 NEG AI (<1.0 NEG); Anti-SS-B <1.0 NEG AI (<1.0 NEG); Chromatin Antibody <1.0 NEG AI (<1.0 NEG); Complement C3 127 mg/dL; Cyclic Citrullinated Pep IgG <16 UNITS; DNA ds Crithidia NEGATIVE (NEGATIVE); Microsomal Ab 3 IU/mL (<9); RNP Antibody <1.0 NEG AI (<1.0 NEG); Rheumatoid Factor <14 IU/mL (<14); Scleroderma Anti Scl-70 Ab <1.0 NEG AI (<1.0 NEG); Sm Antibody <1.0 NEG AI (<1.0 NEG)
== END 2022-04-16 13:59 | disposition home or self-care (01) | DRG 196 ==
LOC: EDINP 16:21 → ED 16:21 → SUATTDRO 04-14 04:00 → 2S 04-15 02:30